=== PATIENT | male | born 2005 | race Caucasian/White ===

== ENCOUNTER 2025-03-21 14:53 | Outpatient (OUT) | payer BC, SELFPAY ==
--- OUTSIDE RECORDS SUMMARY | 2025-03-21 10:30 | XMS_ITS | Continuity of Care Document ---
Author Organization [facility] Address [address] [place] [address] Phone Care Team Providers Care Restaurant Host/Hostess Name Role Phone Angy Farmer MD Primary Care Provider Angy Farmer MD Attending Provider Care Teams Patient Care Team Team Status: Active Member Role/Relationship Status Dates Angy Farmer MD Primary Care Provider Active Patient Care Team Team Status: Inactive Member Role/Relationship Status Dates Angy Farmer MD Primary Care Provider Active Start: March 21, 2025 End: March 21, 2025Angy Farmer MDAttending ProviderActiveStart: March 21, 2025 End: March 21, 2025 Chief Complaint and Reason for Visit Chief Complaint Admit Date Discuss Personal Issue March 21 1:24pm Reason for Visit Admit Date Screening examination for STI March 212024 1:24pm Allergies, Adverse Reactions, Alerts Allergen Type Severity Reaction Last Updated Verified Status No Known Allergies Allergy Unknown March 21, 2025 1:49pmYesActive Social History Smoking Status Status Start Date End Date Date of Observa tion Never smoked tobacco (finding) January 26, 2014 12:40pm Observation Status Observation Response Date of Response Legal Sex Male (finding) Sex Assigned At BirthMaleApril 2005 Problems Active Problems Problem Diagnosis/Recorded Date Onset Date Stat us Screening examination for STI March 21, 2025 2:25p m Unknown Active URI (upper respiratory infection) July 04, 2024 1 1:11am Unknown Active Right anterior shoulder pain July 04, 2024 11:11a m Unknown Active Immunizations Immunization Event Date Not Given Reason Dose Number Science Job Titles Lot Number Reason(s) Given Vaccine Information Statement (VIS) Detail Administration Location DTap, unspecified December 20, 2016 Meningococcal [id number] 2016meningococcal B, unspecifiedApril 01, 2022 Vital Signs Vital Reading Result Reference Range Collection Date/Time Height 66 [in_i] March 21, 2025 1:48inGwogek39.52 [facility] 1:48pmHeart Rate86 /zmd56-686Fvzbghp 2024 1:48pmBP Cfzorcid929 mm[Hg]100-140October 2024 1:48pmBP Mpxhahfuy11 mm[Hg]60-100Oct[facility] [place] 2024 1:48pmBMI (Body Mass Index)34.7 kg/c0Uusqxie 2024 1:48pm Advance Directives Advance Directive Response Recorded Date/ Time Advance Directives No March 19, 2025 3:03pm Insurance Providers Guarantor Meredith Bairdwell Address [address] [place] [phone] Info.Home Phone: Coverage Status Update:2024 Payer Group Member ID Coverage Type Subscriber Relationship to Subscriber Effective Date Expiration Date Nestor GARZA [id number] Colwell Id: [id number] [address] [place] [id number] Home Phone: [employer] Id: [id number] Colwell Id: [id number] [address] [place] [phone] Home Phone: Encounters Encounter Location(s) Arrival/Admit Date Discharge/Departure Date Discharge/Departure Disposition Provider(s) Departed Physician/ Provider Office Visit -[facility] March 21, 2025 1:24pm March 21, 2025 2:29pm Discharged to home care or self care (routine discharge) Angy Farmer MD Recent Diagnosis Onset Date Admit Date Screening examination for STI Unknown Oc tober 2024 1:24pm Assessments Diagnosis Onset Date Resolution Status Admit Date [facility]ening [facility] 1:24pm Plan of Treatment Future Tests Future scheduled test information is unavailable Pending Tests Pending diagnostic test information is unavailable Future Visits Future appointment information is unavailable Future Procedures Procedure Name Ordered Date Scheduled Date HSV 05/31 PCR March 21, 2025 2:22pm Future Medications Future medication information is unavailable Patient Instructions Patient instructions are unavailable
--- OUTSIDE RECORDS SUMMARY | 2025-03-21 15:02 | XMS_ITS | Clinical Summary ---
Author Organization [facility] Address [address] [place] [address] Care Team Providers Care Hand Ii Blocker Name Role Phone Unavailable Primary Care Provider Unavailabl e Social History Tobacco UseTypesPacks/DayYears UsedDateSmoking Tobacco: Never AssessedSex and Gender InformationValueDate RecordedSex Assigned at BirthNot on fileLegal Sex Male08/11/2022 11:01 PM EDTGender IdentityNot on fileSexual OrientationNot on file Last Filed Vital Signs Vital SignReadingTime TakenCommentsBlood Pressure--Pulse--Temperature-- Respiratory Rate--Oxygen Saturation--Inhaled Oxygen Concentration--Zetzjm44.8 kg (167 lb)07/20/2021 12:00 PM BHCGceapo847.1 cm (5' 5 )07/20/2021 12:00 PM ESTBody Mass Index27.7907/20/2021 12:00 PM EST Plan of Treatment Not on file Insurance
--- OUTSIDE RECORDS SUMMARY | 2025-03-21 15:02 | XMS_ITS | Clinical Summary ---
Author Organization [facility] Address [address] [place] [address] Care Team Providers Care Special Warfare Operator Name Role Phone Unavailable Primary Care Provider Unavailabl e Social History Tobacco UseTypesPacks/DayYears UsedDateSmoking Tobacco: Never AssessedUT Safety & EnvironmentAnswerDate RecordedFear of Current or Ex-PartnerNot on file 07/21/2023Emotionally AbusedNot on file07/21/2023hysically AbusedNot on file 07/21/2023Sexually AbusedNot on file4Physically or Sexually AbusedNot on file07/21/2023Sex and Gender InformationValueDate RecordedSex Assigned at BirthNot on fileLegal HctOidr6801/12/2022 12:27 PM EDTGender IdentityNot on file Sexual OrientationNot on file Last Filed Vital Signs Vital SignReadingTime TakenCommentsBlood Pressure--Pulse--Temperature-- Respiratory Rate--Oxygen Saturation--Inhaled Oxygen Concentration--Qkocim89.7 kg (167 lb)09/30/2021 8:38 AM VCBCddhzn851.6 cm (5' 6 )09/30/2021 8:38 AM EDTBody Mass Index26.95009/30/2021 8:38 AM EDT Plan of Treatment Not on file
[2025-03-25 08:08] LABS: HSV-1 DNA Negative (Negative); HSV-2 DNA Negative (Negative)
== END 2025-03-21 14:54 | disposition home or self-care (01) ==
LOC: LAB 14:59
PROVIDERS: PCP Family Medicine; Visit Provider Family Medicine
DX: Z11.3 Encounter for screening for infections with a predominantly sexual mode of transmission (principal)
CPT/HCPCS: 87529